=== PATIENT | female | born 1995 | race American Indian/Alaskan Native ===

== ENCOUNTER 2020-08-10 21:39 | Emergency (ER) | payer OTHER ==
[2020-08-11 00:30] VITALS: BP 116/70
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
[2020-08-11 01:24] LABS: HCG Qualitative,Urine Negative (Negative)
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
== END 2020-08-11 02:00 | disposition home or self-care (01) ==
LOC: ED 21:39
DX: S06.0X0A Concussion without loss of consciousness, initial encounter (principal); Z98.890 Other specified postprocedural states; Z79.899 Other long term (current) drug therapy; Z91.013 Allergy to seafood; X58.XXXA Exposure to other specified factors, initial encounter; Y93.67 Activity, basketball; Y92.89 Other specified places as the place of occurrence of the external cause; Y99.8 Other external cause status
CPT/HCPCS: 70450; 81025